=== PATIENT | female | born 1980 ===

== ENCOUNTER 2021-09-06 22:33 | Emergency (ER) | payer SELFPAY ==
--- NOTE | 2021-09-07 00:15 | XRay Report ---
RIGHT ANKLE 2 VIEW(S) INDICATION / CLINICAL INFORMATION: fall COMPARISON: None available. FINDINGS: BONES / JOINT(S): No acute fracture or subluxation. No significant arthritis. SOFT TISSUES: No significant abnormality. ADDITIONAL FINDINGS: None. IMPRESSION: No acute pathology. Signer Name: Cory Masters II, MD Signed: 09/07/2021 12:10 AM Workstation Name: [id number]
[2021-09-07] MEDS ORDERED: oxyCODONE /ACETAMINOPHEN 5-325MG TAB PO ONE (03:23)
--- NOTE | 2021-09-07 03:29 | Emergency Department Report ---
ED Lower Extremity HPI - General Chief Complaint: Extremity Injury, Lower Stated Complaint: RT ANKLE INJURY Time Seen by Provider: 09/07/21 03:23 Source: patient Mode of arrival: Ambulatory Limitations: No Limitations - History of Present Illness Complaint: ankle injury -: Sudden, Last night Injury: Ankle: Right Type of Injury: inversion Place: home Severity: moderate Improves With: immobilization, other (Compression therapy) Worsens With: weight bearing, movement, palpation Context: fall Associated Symptoms: swelling, unable to bear weight. denies: numbness, tingling, ambulatory - Related Data Previous Rx's Medication Instructions Recorded Last Taken Type traMADoL [Ultram] 50 mg PO Q6HR PRN #14 tablet 09/07/21 Unknown Rx Allergies Allergy/AdvReac Type Severity Reaction Status Date / Time No Known Allergies Allergy Verified 09/06/21 23:32 ED Review of Systems ROS: Stated complaint: RT ANKLE INJURY Other details as noted in HPI Comment: All other systems reviewed and negative ED Past Medical Hx - Past Medical History Previous Medical History?: Yes Additional medical history: OVARIAN CYST - Surgical History Past Surgical History?: Yes Additional Surgical History: FALLOPIAN TUBE REMOVAL - Social History Smoking Status: Current Every Day Smoker Substance Use Type: Marijuana - Medications Home Medications: Home Medications Medication Instructions Recorded Confirmed Last Taken Type traMADoL [Ultram] 50 mg PO Q6HR PRN #14 tablet 09/07/21 Unknown Rx ED Physical Exam - General Limitations: No Limitations General appearance: alert, in no apparent distress - Head Head exam: Present: atraumatic, normocephalic - Eye Eye exam: Present: normal appearance - ENT ENT exam: Present: mucous membranes moist - Neck Neck exam: Present: normal inspection - Respiratory Respiratory exam: Present: normal lung sounds bilaterally. Absent: respiratory distress - Cardiovascular Cardiovascular Exam: Present: regular rate, normal rhythm. Absent: systolic murmur, diastolic murmur, rubs, gallop - GI/Abdominal GI/Abdominal exam: Present: soft, normal bowel sounds - Extremities Exam Extremities exam: Present: normal inspection, tenderness, joint swelling - Expanded Lower Extremity Exam Right Knee exam: Present: normal inspection, full ROM. Absent: tenderness Ankle exam: Present: tenderness, swelling. Absent: laceration, ecchymosis, dislocation, erythema Neuro vascular tendon exam: Present: no vascular compromise. Absent: pulse deficit, abnormal cap refill, sensory deficit - Back Exam Back exam: Present: normal inspection - Neurological Exam Neurological exam: Present: alert, oriented X3 - Psychiatric Psychiatric exam: Present: normal affect, normal mood - Skin Skin exam: Present: warm, dry, intact, normal color. Absent: rash ED Course Vital Signs 09/06/21 23:28 Temperature 97.9 F Pulse Rate 64 Respiratory 18 Rate Blood Pressure 119/33 O2 Sat by Pulse 99 Oximetry - Orthopedic Splinting/Casting Injury #1 Side: right Lower Extremity Injury Location: ankle Lower Extremity Immobilizer: stirrup splint (Velcro) Other Orthopedic Equipment: crutches ED Lower Extremity MDM - Radiology Data Radiology results: report reviewed [facility] [address] [place] [address] XRay Report Signed Patient: JOHN PEREIRA MR#: [id number] : 1980 Acct:[id number] Age/Sex: 41 / F ADM Date: 09/06/21 Loc: ED Attending Dr: Ordering Physician: ED MD JESSICA Date of Service: 09/06/21 Procedure(s): XR ankle 2V RT Accession Number(s): [id number] cc: ED MD JESSICA Fluoro Time In Minutes: RIGHT ANKLE 2 VIEW(S) INDICATION / CLINICAL INFORMATION: fall COMPARISON: None available. FINDINGS: BONES / JOINT(S): No acute fracture or subluxation. No significant arthritis. SOFT TISSUES: No significant abnormality. ADDITIONAL FINDINGS: None. IMPRESSION: No acute pathology. Signer Name: Candido Masters II, MD Signed: 09/07/2021 12:10 AM Workstation Name: [id number] Transcribed By: RACHEL Dictated By: CANDIDO MASTERS II, MD Electronically Authenticated By: CANDIDO MASTERS II, MD Signed Date/Time: 09/07/219 DD/ TD/TT: Critical care attestation.: If time is entered above; I have spent that time in minutes in the direct care of this critically ill patient, excluding procedure time. ED Disposition Clinical Impression: Right ankle sprain Disposition: HOME / SELF CARE / HOMELESS Is pt being admited?: No Does the pt Need Aspirin: No Condition: Stable Instructions: Ankle Sprain, Elastic Bandage and RICE Therapy, Ankle Sprain, Sfdb-vs-[id number], How to Use a Stirrup Ankle Brace Prescriptions: traMADoL [Ultram] 50 mg PO Q6HR PRN #14 tablet PRN Reason: Pain Referrals: DEVI SCHNEIDER MD [Staff Physician] - 3-5 Days
[2021-09-07 04:00] VITALS: BP 121/56
== END 2021-09-07 04:33 | disposition home or self-care (01) ==
LOC: ED 22:33
DX: S93.401A Sprain of unspecified ligament of right ankle, initial encounter (principal); F17.200 Nicotine dependence, unspecified, uncomplicated; X58.XXXA Exposure to other specified factors, initial encounter; Y93.89 Activity, other specified; Y92.89 Other specified places as the place of occurrence of the external cause; Y99.8 Other external cause status
CPT/HCPCS: 99283